=== PATIENT | female | born 1990 | race Caucasian/White ===

== ENCOUNTER → 2016-09-30 | Outpatient (CLI) | payer BC, OTHER ==
[~2016-09-30] MED LIST: IBUP800T23 PO; PERC5TAB12 PO; ZOFR4TAB3 SL; ZOFR8TAB4 SL
[2016-09-30 14:01] LABS: AUTOMATED NEUTROPHIL # 5.9 TH/MM3 (1.8-7.7); BASOPHIL % 0.4 % (0.0-2.0); EOSINOPHIL # 0.3 TH/MM3 (0-0.4); EOSINOPHIL % 3.8 % (0.0-4.0); HEMATOCRIT 37.5 % (35.0-46.0); LYMPH % 24.6 % (9.0-44.0); LYMPHOCYTE # 2.2 TH/MM3 (1.0-4.8); MEAN CELL VOLUME 74.7 FL (80.0-100.0); MEAN CORPUSCULAR HEMOGLOBIN 24.8 PG (27.0-34.0); MEAN CORPUSCULAR HGB CONC 33.3 % (32.0-36.0); MONO % 5.5 % (0.0-8.0); NEUT % 65.7 % (16.0-70.0); PLATELET COUNT 402 TH/MM3 (150-450); RED BLOOD COUNT 5.02 MIL/MM3 (4.00-5.30); RED CELL DISTRIBUTION WIDTH 16.2 % (11.6-17.2); WHITE BLOOD COUNT 8.9 TH/MM3 (4.0-11.0)
[2016-09-30 14:02] LABS: HEMO FLAGS AUTO DIFF
[2016-09-30 14:03] LABS: BACTERIA, URINE RARE /hpf; BLOOD, URINE MOD (NEG); GLUCOSE,URINE NEG (NEG); KETONE, URINE NEG (NEG); MUCUS URINE FEW /lpf (OCC); NITRITE,URINE NEG (NEG); SQUAMOUS EPITHELIAL CELL URINE 3 /hpf (0-5); URINE COLOR YELLOW (YELLW/STRAW)
[2016-09-30 14:04] LABS: COMMENT (UR) CULT NOT INDICATED; CULTURE IF INDICATED CULT NOT INDICATED
[2016-09-30 14:29] LABS: PLATELET ESTIMATE SMEAR NORMAL (NORMAL); PLATELET MORPHOLOGY NORMAL (NORMAL); SCAN/DIFF AUTO DIFF CONFIRMED
[2016-09-30 14:39] LABS: BETA HCG QUANT LESS THAN 1 MIU/ML (0-5)
--- NOTE | 2016-10-01 16:35 | EKG ---
Date Performed: 09/30/2016 Time Performed: 13:28:15 PTAGE: 26 years EKG: Sinus rhythm NORMAL ECG NO PREVIOUS TRACING DOCTOR: Charu Aponte Interpretating Date/Time 10/01/2016 16:33:44
== END ==
LOC: CPRE 12:59
PROVIDERS: ATTEND Obstetrics & Gynecology
DX: Z01.810 Encounter for preprocedural cardiovascular examination (principal); Z01.812 Encounter for preprocedural laboratory examination; N92.0 Excessive and frequent menstruation with regular cycle; N94.6 Dysmenorrhea, unspecified
CPT/HCPCS: 36415; 81001; 84702; 85025; 86850; 86900; 86901; 93005

== ENCOUNTER 2016-10-02 11:05 | Observation (INO) | payer BC, OTHER ==
--- NOTE | 2016-10-01 11:01 | MH ---
cc: RUSSELL VELAZQUEZ M.D. DATE OF ADMISSION: 10/02/2016 ADMITTING DIAGNOSIS Dysmenorrhea. HISTORY OF PRESENT ILLNESS The patient is a 26-year-old white female para 4-0-2-4, has history of dysmenorrhea which has increased dramatically since the of her last child and is now admitted for hysterectomy. OB HISTORY She has four sections, the last one on 06/05/2016. Two spontaneous abortions that did not require D&C. ADDITIONAL HISTORY ALLERGIES None. TRANSFUSIONS None. SOCIAL HISTORY She is . She is a student. Alcohol, tobacco and drugs are none. PHYSICAL EXAMINATION GENERAL: A well-nourished, well-developed black female. VITAL SIGNS: Stable. HEENT: Exam is normal. CHEST: Clear. HEART: Regular rate. BREASTS: Symmetrical. ABDOMEN: Benign. PELVIC EXAM: Normal external genitalia and BUS. Vagina is normal. Cervix normal. Uterus is enlarged, about 12 weeks' size. ASSESSMENT As above. PLAN She is now admitted for a laparoscopy with planned LASH procedure, bilateral salpingectomy with ovarian sparing if normal, possible LUIS-BSO. While in the office I have explained the procedures, the risks, benefits and complications. The patient would like to proceed. MD DEANDRA Pinto/SSB /8:05 AM /10:43 AM
[~2016-10-02] VITALS: Ht 170.2 cm; Wt 105.5 kg
[~2016-10-02 11:05] MED LIST changes: +KETOROLAC TROMETHAMINE 60 MG/2 ML (IM) VIAL IM ONE; +LACTATED RINGER'S 1000 ML INJ 1,000 ML IV ONE; +NEOSTIGMINE 3 MG/3 ML SYR IV ONE; +ONDANSETRON HCL 4 MG/2 ML VIAL IV PUSH ONE; -PERC5TAB12 PO; +PROPOFOL 200 MG/20 ML AMP IV ONE; -ZOFR4TAB3 SL; -ZOFR8TAB4 SL
[2016-10-02 12:15] VITALS: BP 132/69; PULSE 86; RESP 16; TEMP 98.8; O2SAT 97
[2016-10-02] MEDS ORDERED: ACETAMINOPHEN 1000 MG/100 ML VIAL IV ONE ×2 (12:15→12:30)
[2016-10-02] MEDS ORDERED: ceFAZolin 2 GM PREMIX 50 ML ONE (12:15)
[2016-10-02] MEDS ORDERED: ROPIVACAINE 0.5% PF INJ 30 ML VIAL NB ONE (12:15)
[2016-10-02] MEDS ORDERED: METOPROLOL TARTRATE 25 MG TAB PO PRN (12:30)
[2016-10-02] MEDS ORDERED: INSULIN HUMAN REGULAR 1,000 UNITS/10 ML VIAL SQ PRN (12:30)
[2016-10-02] MEDS ORDERED: ceFAZolin 2 GM PREMIX 50 ML IV SCH (12:30)
[2016-10-02] MEDS ORDERED: SODIUM CHLORID 0.9% 500 ML IV SCH (12:30)
[2016-10-02] MEDS ORDERED: LACTATED RINGER'S 1000 ML IV SCH (12:30)
[2016-10-02] MEDS ORDERED: fentaNYL CITRATE 250 MCG/5 ML AMP ONE (12:36)
[2016-10-02] MEDS ORDERED: ONDANSETRON HCL 4 MG/2 ML VIAL IV PRN (14:30)
[2016-10-02] MEDS ORDERED: ZOLPIDEM TARTRATE 5 MG TAB PO PRN (14:30)
[2016-10-02] MEDS ORDERED: PROMETHAZINE INJ 25 MG/ML VIAL IM PRN (14:30)
[2016-10-02] MEDS ORDERED: PROMETHAZINE HCL 25 MG TAB PO PRN (14:30)
[2016-10-02] MEDS ORDERED: HYDROmorphone HCL PF 1 MG/ML VIAL IV PRN (14:30)
[2016-10-02] MEDS ORDERED: SODIUM CHLORIDE 0.9% FLUSH 5 ML FLUSH FLUSH PRN (14:30)
[2016-10-02] MEDS ORDERED: diphenhydrAMINE HCL 25 MG CAP PO PRN (14:30)
[2016-10-02] MEDS ORDERED: ONDANSETRON ODT 4 MG TAB PO PRN (14:30)
[2016-10-02] MEDS ORDERED: DO NOT ADM ANY ANTICOAGULANT DRUGS XX PRN (14:52)
[2016-10-02] MEDS ORDERED: D5-1/2 NS + KCL 20 MEQ INJ 1,000 ML IV SCH (15:00)
[2016-10-02] MEDS ORDERED: *morphine SULFATE 8 MG/ML PERIprocedure ONLY ONE (15:24)
[2016-10-02] MEDS ORDERED: *PROMETHAZINE 25 MG/ML VIAL PERIprocedural use ONLY ONE (15:26)
[2016-10-02] MEDS ORDERED: *ONDANSETRON 4 MG VIAL PERIprocedural Use ONLY ONE (15:26)
[2016-10-02 16:00] VITALS: BP 133/79; PULSE 72; RESP 20; TEMP 97.8; O2SAT 98
[2016-10-02] MEDS ORDERED: KETOROLAC TROMETHAMINE 30 MG/ML (IVP) VIAL IVP SCH (16:00)
[2016-10-02] MEDS ORDERED: DOCUSATE SODIUM 100 MG CAP PO SCH (18:00)
[2016-10-02 19:25] LABS: HEMATOCRIT 37.6 % (35.0-46.0)
[2016-10-02 19:28] LABS: REVIEW FLAG FINAL
[2016-10-02 20:00] VITALS: BP 119/76; PULSE 78; RESP 18; TEMP 97.6; O2SAT 98
[2016-10-02] MEDS ORDERED: ACETAMINOPHEN 1000 MG/100 ML VIAL IV SCH (20:00)
[2016-10-02] MEDS ORDERED: ZOFR8TAB4 SL (20:45)
[2016-10-02] MEDS ORDERED: PERC5TAB12 PO (20:45)
[2016-10-02] MEDS ORDERED: SODIUM CHLORIDE 0.9% FLUSH 5 ML FLUSH FLUSH SCH (21:00)
--- NOTE | 2016-10-08 18:23 | MP ---
cc: RUSSELL VELAZQUEZ DATE OF SURGERY 10/02/2016 PREOPERATIVE DIAGNOSIS Dysmenorrhea POSTOPERATIVE DIAGNOSIS Dysmenorrhea, pathology pending PROCEDURE LASH with a bilateral salpingectomy. ANESTHESIA General ET SURGEON Russell Velazquez MD TAKER OFF Violetta Hebert ESTIMATED BLOOD LOSS 100 cc FLUIDS 1.2 liters of crystalloid OBJECTIVE FINDINGS Following induction of adequate general endotracheal anesthesia, the patient was prepped and draped supine on the operating table dorsal supine position in the sterile fashion with the bladder being drained via Medina catheterization. The abdomen was opened through a 3 cm curving infraumbilical incision using knife to cutdown skin to the fascia. Fascia opened transversely, stripped from the muscles, rectus muscle split in the midline and the peritoneum opened sharply without incident. The GelPort was placed. The laparoscope inserted. A five port was placed in the left lower quadrant and the low pressure port in the right lower quadrant. Pelvic contents, uterus is about 12 weeks' size, enlarged with adenomyosis, tubes and ovaries were normal. [place]-de-sacs were clear. Liver edge was normal. Working first on the left, a harmonic scalpel was used take the left the mesosalpinx, left round ligament, left broad ligament, left-side of the bladder flap and the left uterine vessels, same on the right. The harmonic scalpel was now used to amputate the fundus of cervix. A pouch was inserted and the uterus and tubes extracted intact. Irrigation was performed. One area of bleeding on the cervix was controlled with the Harmonic scalpel. Low pressure tests were done in the Trendelenburg position, there was no bleeding. The operative sites were now coated with Evicel. Ureters were inspected with good peristalsis. The scope was now removed. GelPort removed. The peritoneum sutured with running 2-0 Vicryl, the fascia with a running locking stitch of 0 Vicryl corner to midline and tied, subcu with running 3-0 Vicryl and the skin with running subcuticular 3-0 Monocryl. The scope was now reinserted through the lower port and used to check the GelPort site which was well closed with no bleeding or entrapment. The pelvis was inspected. No bleeding. The scope was removed. The gas was allowed to escape. The small port sutured with 3-0 Monocryl. Dermabond applied. All counts correct and the patient was awakened and taken to the recovery room in good condition. MD DEANDRA Pinto/LOUISE /3:07 PM /6:14 PM
== END 2016-10-02 21:26 | disposition home or self-care (01) ==
LOC: HSDC 11:05 → HSDI 14:21 → HOCB 15:58
PROVIDERS: ADMIT Obstetrics & Gynecology; ATTEND Obstetrics & Gynecology
DX: N94.6 Dysmenorrhea, unspecified (principal); N92.0 Excessive and frequent menstruation with regular cycle; N80.0 Endometriosis of uterus; N83.8 Other noninflammatory disorders of ovary, fallopian tube and broad ligament; R10.2 Pelvic and perineal pain; Z01.810 Encounter for preprocedural cardiovascular examination
CPT/HCPCS: 00840; 36415; 58542; 81001; 84702; 85014; 85018; 85025; 86850; 86900; 86901; 88307; 93005; G0378; J0131; J0690; J1885; J2270; J2405; J2550; J2710; J2795; J3010; J3480; J7120